=== PATIENT | male | born 1965 | race Caucasian/White ===

== ENCOUNTER 2019-01-09 12:37 | Emergency (ER) | payer BC ==
[2019-01-09 12:51] VITALS: BP 111/74
[2019-01-09] MEDS ORDERED: Lidocaine 1%* 5 ML VIAL INJ ONE (12:53)
--- NOTE | 2019-01-09 13:54 | UC ---
Laceration HPI - HPI Summary HPI Summary: 53 y/o male presents to the urgent care accompany by c/o laceration of his LF knee w/ a chain saw abou 1.5hrs ago. Pt reports he was cutting some branches in his garden and he accidentally cut his left knee. Bleeding stopped w/ pressure and irrigated w/ hydrogen peroxide. Pain is mild 1/10 at touch, He can move his knee w/o any difficulty. His Tetanus vaccines was updated 2 years ago. Pt denies fever, SOB, chest pain, abdominal pain, N/V/D. - History Of Current Complaint Chief Complaint: UCLaceration Stated Complaint: KNEE LAC Time Seen by Provider: 01/09/19 12:53 Hx Obtained From: Patient Laceration Location: Knee - Lf knee Mechanism Of Injury: Sharp Trauma Onset/Duration: Sudden Onset, Lasting Hours - 1.5 hrs ago Severity: Mild Pain Intensity: 1 Pain Scale Used: 0-10 Numeric Aggravating Factors: Other: - touch - Allergies/Home Medications Allergies/Adverse Reactions: Allergies Allergy/AdvReac Type Severity Reaction Status Date / Time No Known Allergies Allergy Verified 01/09/19 12:49 Home Medications: Home Medications diphenhydrAMINE HCl [Benadryl Allergy] 100 mg PO QPM 01/09/19 [History Confirmed 01/09/19] PMH/Surg Hx/FS Hx/Imm Hx Previously Healthy: Yes Other Endocrine History: Gout Neurological History: Seizures Other History Of: Negative For: Anticoagulant Therapy - Surgical History Surgical History: None - Family History Known Family History: Positive: Cardiac Disease, Hypertension, Diabetes - Social History Occupation: Employed Full-time Lives: With Family Alcohol Use: Rare Substance Use Type: None Smoking Status (MU): Never Smoked Tobacco - Immunization History Hx Tetanus, Diphtheria Vaccination: Yes - 2 years ago Review of Systems All Other Systems Reviewed And Are Negative: Yes Constitutional: Positive: Negative Skin: Positive: Other - laceration of left knee w/ a chain saw Eyes: Positive: Negative ENT: Positive: Negative Respiratory: Positive: Negative Cardiovascular: Positive: Negative Gastrointestinal: Positive: Negative Genitourinary: Positive: Negative Motor: Positive: Negative Neurovascular: Positive: Negative Musculoskeletal: Positive: Negative Neurological: Positive: Negative Psychological: Positive: Negative Is Patient Immunocompromised?: No Physical Exam - Summary Physical Exam Summary: Vital Signs Reviewed: Yes General: well developed, well nourished male sitting in the examining table w/o any apparent distress Eye Exam: Normal Eyes: Positive: Conjunctiva Clear - PERRLA, EOMI, fundi grossly normal ENT: Positive: Normal ENT inspection, Hearing grossly normal, Pharynx normal, TMs normal Neck: Positive: Supple, Nontender, No Lymphadenopathy Respiratory: Positive: Chest non-tender, Lungs clear, Normal breath sounds, No respiratory distress Cardiovascular: Positive: RRR, No Murmur, Pulses Normal, Brisk Capillary Refill Abdomen Description: Positive: Nontender, No Organomegaly, Soft. Negative: CVA Tenderness (R), CVA Tenderness (L) Bowel Sounds: Positive: Present Musculoskeletal: Positive: Strength Intact, ROM Intact, No Edema Neurological: Positive: Alert, Muscle Tone Normal Psychological Exam: Normal Skin: Positive: Medial aspect of LF knee with a linear superficial laceration about 3.0cm in size, bleeding, no foreign body observed. mild tenderness to palpation, no ecchymosis around knee. FROM of LF knee, sensation intact, capillary refill brisk, and pulses WNL. Triage Information Reviewed: Yes Vital Signs: Initial Vital Signs Temp 98 F 01/09/19 12:44 Pulse 71 01/09/19 12:44 Resp 18 01/09/19 12:44 BP 111/74 01/09/19 12:44 Pulse Ox 98 01/09/19 12:44 Laceration Repair - Laceration Repair 1 Description: Linear - superficial linear laceration Laceration Size After Repair: Length (cm) - 3.0 Modified For Repair: No Type Injection: Local Anesthesia Used: 1.0% Lido - 2ml Cleansing Completed Via Routine Prep: Yes Irrigation With Pressure Irrigation Device: Yes Closure Material: Sutures - 7 sutures placed Closure Method: Single Layer Suture Of: Skin, SQ Suture Type: Nylon - 4.0 Laceration Course/Dx - Course/Dx Course Of Treatment: 53 y/o male presents to the urgent care accompany by c/o laceration of his LF knee w/ a chain saw abou 1.5hrs ago. Pt reports he was cutting some branches in his garden and he accidentally cut his left knee. Bleeding stopped w/ pressure and irrigated w/ hydrogen peroxide. Pain is mild 1/10 at touch, He can move his knee w/o any difficulty. His Tetanus vaccines was updated 2 years ago. Pt denies fever, SOB, chest pain, abdominal pain, N/V/D. Hx obtained. Pt w/ a superficial linear laceration on medial aspect of left knee abut 3.0cm in size on examination. LACERATION PROCEDURE NOTE: . Copious irrigation was done with saline by the nurse and the wound explored. There was no FB or deep structure injury noted. FROM of left forearm. procedure was explained and consent obtained, Timeout performed. The wound was anesthetized with 2 mL of 1 % lido with good anesthesia. Sterile drape and prep were done. There were 7 sutures with 4.0 nylon type of suture. The length of the wound after closure was 3.0cm. No debridement done. Pt tolerated the procedure well without adverse effects. Neurovascular intact and FROM of left knee. Bacitracin oint applied over wound and covered w/ sterile dressing by me. Pt advised to f/u suture removal in 12-14 days and if any signs of infection develop to immediately return to the urgent care of PCP for further management and treatment. Pt understood and agreed and left the clinic ambulating A&Ox3. - Differential Dx - Laceration/Wound Differental Diagnoses: Abrasion, Cellulitis, Laceration, Puncture Wound, Tendon Laceration - Diagnosis Provider Diagnosis: Laceration of left knee Discharge - Sign-Out/Discharge Documenting (check all that apply): Patient Departure - D/C home All imaging exams completed and their final reports reviewed: No Studies - Discharge Plan Condition: Stable Disposition: HOME Patient Education Materials: Care For Your Stitches (ED), Laceration (ED) Referrals: Uvaldo Greene, [facility] [Primary Care Provider] - 2 Weeks Additional Instructions: 1-Please apply Bacitracin oint topical antibiotic over the wound. Keep wound clean and dry 2- F/u suture removal in 12-14 days w/ your PCP or here at the urgent care. 3-Take Ibuprofen or Tylenol PO q6-8hrs prn for pain or swelling. 4- If you develop fever or redness around your laceration please return to the Urgent care or f/u w/ your PCP for further management. - Billing Disposition and Condition Condition: STABLE Disposition: Home
== END 2019-01-09 14:05 | disposition home or self-care (01) ==
LOC: UCEAST 12:37
DX: S81.012A Laceration without foreign body, left knee, initial encounter (principal); W27.1XXA Contact with garden tool, initial encounter; Y92.9 Unspecified place or not applicable
CPT/HCPCS: 12002; 99211; G0463